=== PATIENT | female | born 1995 | race Caucasian/White ===

== ENCOUNTER 2020-06-10 20:41 | Inpatient (IN) | payer OTHER, MEDICAID, SELFPAY ==
[2020-06-10 20:59] VITALS: BMI 31.8
[2020-06-10 21:00] VITALS: PULSE 90; O2SAT 91
[2020-06-10] MEDS: Lactated Ringers 1,000 ML 200 ML IV (21:07)
[2020-06-10 21:09] VITALS: BP 110/79; PULSE 78; TEMP 36.9
[2020-06-10 21:24] LABS: Absolute Lymphocyte Count 3.05 X10^3/uL (0.83-4.51); Absolute Neutrophil Count 10.3 X10^3/uL (2.0-7.7); Basophil# 0.03 X10^3/uL; Basophil% 0.2 % (0-1); Eosinophil# 0.06 X10^3/uL; Eosinophils% 0.4 % (0-5); Hematocrit 38.6 % (37-47); Hemoglobin 13.3 g/dL (12.0-15.0); Lymphocyte # 3.05 X10^3/ul (4.0); Lymphocyte % 21.2 % (19-41); Mean Corp Hgb Conc 34.5 g/dL (32-36); Mean Corpuscular Hgb 30.2 pg (27.0-32.0); Mean Corpuscular Volume 87.5 fL (81-99); Mean Platelet Vol. 12.3 fl (6.2-12.0); Monocyte# 0.85 X10^3/uL; Monocyte% 5.9 % (0-10); NRBC Flagged by Analyzer 0 % (0-5); Neutrophil # 10.33 X10^3/uL (2.7-7.7); Neutrophil % 71.8 % (47-70); Platelet Count 161 K/mm3 (150-450); RBC Distribution Width CV 12.9 % (11.6-14.6); RBC Distribution Width SD 41.5 fl (35.1-43.9); Red Blood Count 4.41 M/mm3 (4.2-5.4); White Blood Count 14.4 K/mm3 (4.4-11.0)
[2020-06-10 21:39] VITALS: BP 111/75; PULSE 86; TEMP 37.2; O2SAT 97
[2020-06-10 22:15] VITALS: BP 116/70; PULSE 87; TEMP 37.1; O2SAT 96
[2020-06-10 22:16] VITALS: PULSE 87; O2SAT 95
[2020-06-10 23:48] VITALS: BP 104/57; PULSE 76; TEMP 36.6; O2SAT 97
--- NOTE | 2020-06-10 23:53 | PCM.HP.OB ---
- Problem List (1) 38 weeks gestation of Status: Acute (2) Spontaneous onset of labor Status: Acute History Date of Admission: 06/10/20 Final NEELAM: 06/18/20 Gestational age: 38 Weeks and 6 Days History of this : This is a 24 year-old, G [1], P [0], at 38.6 weeks gestational age that presents in spontaneous labor. Patient reports having increasing back pain that did not resolve with bath, heating pad, or Tylenol PO. Denies any loss of fluid or vaginal bleeding. Positive movement. has been uncomplicated. Allergies clindamycin [From Cleocin] Allergy (Verified 06/10/20 21:32) Hives Home Medications: Home Medications Pnv No.95/Ferrous Fum/Folic AC [ Caplet] 1 tab PO DAILY 06/10/20 Smoking Status: Former smoker Number of Fetus(es): 1 NST - FHR Rate Baby A Baseline: 150 Variability:: Moderate Accelerations:: 15 x 15 Decelerations:: None NST Reactive:: Yes FHR Category:: Category I Uterine Activity:: Occasional History Past Pregnancies: Past Pregnancies Delivery Date Name GA/ Weeks Outcome Route Wt Infant Sex Labor Length Anesthesia Delivery Location Provider FOB Labs: O+ Rubella- immune HB -neg HC- neg RPR- NR HIV- NR GC/CH- neg GBS- positive Expected Delivery Method: Spontaneous Vaginal Review of Systems Constitutional: Denies: Chills, Fever, Weight Change HEENT: Denies: Head Aches, Sinus Congestion, Sinus Drainage Cardiovascular: Denies: Chest Pain, Palpitations Respiratory: Denies: Cough, Shortness of breath at rest, Sputum production Gastrointestinal: Denies: Abdominal Pain, Nausea, Vomiting Musculoskeletal: Denies: Joint Pain, Joint Tenderness Neurological: Denies: Numbness, Tingling, Focal weakness Physical Exam Vitals: Vital Signs Temp Pulse BP Pulse Ox 97.8 F 76 104/57 L 97 06/10/20 23:48 06/10/20 23:48 06/10/20 23:48 06/10/20 23:48 General: Alert, Oriented x3, Cooperative HEENT: Atraumatic Cardiovascular: Regular rate Lungs: Normal air movement Abdomen: Soft, Non Tender, Gravid Neurological: Cranial nerves II-XII grossly intact Estimated gestational size: Appropriate for gestational size Cervix Dilation (cm): 6 Station: -1 Effacement (%): 90 Assessment/Plan All Active Problems 38 weeks gestation of (Acute) Spontaneous onset of labor (Acute) This is a 24 year-old, G [1], P [0], at 38.6 weeks gestational age in spontaneous labor. Admit to labor and delivery Routine labs Start IV fluids and run per orders Epidural when indicated GBS positive- Start PCN 5 million units IV x1 then PCN 3 million units IV every 4 hours until delivery AROM after adequate treatment with PCN Anticipate Dr. Mills notified of admission and is collaborating physician
[2020-06-11] VITALS (30 sets, daily range): BP systolic 101–121; BP diastolic 55–77; PULSE 68–113; RESP 16–18; TEMP 36.4–37.4; O2SAT 78–99
--- NOTE | 2020-06-11 01:12 | PCM.PN.BLA ---
Progress Note Continues to feel back pain with contractions. Declines pain medication at this time. Category 1 tracing CE- 790/0 bulging membranes AROM for small amount of clear fluid IUPC and FSE placed without difficulty Anticipate STROKE Vital Signs/Narrative: Vital Signs Temp Pulse BP Pulse Ox 06/11/20 00:23 89 97 06/11/20 00:22 98.2 F 111 H 105/70 78 06/10/20 23:48 97.8 F 76 104/57 L 97 06/10/20 22:16 87 95 06/10/20 22:15 98.8 F 87 116/70 96 06/10/20 21:39 98.9 F 86 111/75 97
[2020-06-11] MEDS: Lactated Ringers 1,000 ML 200 ML IV (01:47)
[2020-06-11] MEDS: Ondansetron 4 MG/2 ML Vial IV (02:36)
[2020-06-11] MEDS: 0.9% Saline Lock 10 ML Syringe IV ×2 (02:36→06:23)
[2020-06-11] MEDS: Oxytocin 30 units/NS 500 ml 30 UNITS/500 ML IV.SOLN 334 UNITS IV (03:47)
--- NOTE | 2020-06-11 04:42 | OP.PCM_ITS ---
Problem List (1) 38 weeks gestation of Status: Acute (2) Spontaneous onset of labor Status: Acute Report of Operation Date of Procedure: 06/11/20 Vaginal Delivery Maternal Presentation: Active Labor Amniotic Membrane Rupture Type: Artificial Rupture of Membrane time: 111 Amniotic Fluid Description: Clear Final NEELAM: 06/18/20 Gestational age: 39 Weeks and 0 Days Date of Procedure: 06/11/20 Pre-Operative Diagnosis: Term gestation, spontaneous labor Post-Operative Diagnosis: Same, live male Surgery/ Procedure Performed: Spontaneous Vaginal Delivery Type of Anesthesia: Local with 1% lidocaine Description of Procedure: Called to patient's room for delivery. Minimal maternal effort delivered infant head with perineal counter pressure applied. Anterior shoulder delivered followed by posterior shoulder and remainder of . Vigorous male placed on maternal abdomen and attended to by nursing staff. 3 vessel cord clamped and cut by FOB after 2 minute delay. placed skin to skin with patient. Pitocin IV started for active management of third stage of labor. Placenta delivered spontaneously and intact. After inspection, Bilateral labial lacerations repaired in usual fashion. A first degree perineal laceration repaired as well. Hemostasis present. Fundus firm 2 below U. EBL 350 cc. APGARS 9/9. Patient bon ding with infant. Dr. Mills notified of delivery Presentation: Vertex, CRISTI Placental Delivery Description: Spontaneous Placenta Disposition: [facility] Cord Vessel Description: 3 Vessels Cord Entanglement: None Estimated Blood Loss: 350 (1 minute): 9 (5 minute): 9 Episiotomy Description: None Laceration: Perineal Extension/lac, 1st degree Medications given after delivery: IV Pitocin Complications: None
[2020-06-11] MEDS: Ibuprofen 600 MG Tablet PO (08:39)
[2020-06-12] VITALS (7 sets, daily range): BP systolic 102–106; BP diastolic 55–66; PULSE 76–96; RESP 16–18; TEMP 36.3–37.1
--- NOTE | 2020-06-12 11:05 | PCM.PN.OB ---
Patient Problems: Active and Suspected Problems 38 weeks gestation of (Acute) Spontaneous onset of labor (Acute) Subjective: Doing well per patient and nursing staff. Ambulating and taking p.o. without difficulty. Breast-feeding without concerns. Denies any headache, visual changes, chest pain, shortness of breath or increased vaginal bleeding. Lochia normal. Controlled pain. Discharge home today. - Physical Exam Vitals/I&O's: Vital Signs Temp Pulse Resp BP Pulse Ox 97.3 F L 76 16 104/66 93 06/12/20 08:10 06/12/20 08:10 06/12/20 08:10 06/12/20 08:10 06/11/20 12:41 Oxygen Delivery Method Room Air Weight: 191 lb Body Mass Index (BMI) 31.8 Intake and Output for Last 24 Hours 06/10/20 06/11/20 06/12/20 23:59 23:59 23:59 Intake Total 105 / 105 2380.00 / 2380.00 Output Total 200 / 200 Balance 105 / 105 2180.00 / 2180.00 General: Alert, Oriented x3, Cooperative HEENT: Atraumatic, Normocephalic Neck: Trachea Midline Lungs: Clear to auscultation, Normal air movement, No rhonchi, No wheeze Cardiovascular: Regular rate, Regular Rhythm, No murmurs Abdomen: Bowel Sounds Present - Fundus firm, 2 below U Extremities: No edema Psych/Mental Status: Normal Affect, Appropriate Microbiology Past 72 Hours 06/10/20 21:25 Mucosa - Nose SARS-CoV-2 Antigen (Rapid) - Final Current Medications Acetaminophen (Acetaminophen 500 Mg Tablet) 1,000 mg PO Q8H PRN PRN PRN Reason: Pain Score 1-3 Bisacodyl (Bisacodyl 10 Mg Suppository) 10 mg RC UD PRN PRN Reason: If no BM Dibucaine (Dibucaine 30 Gm Tube) 1 applic TOPICAL TID PRN PRN; Protocol PRN Reason: Discomfort Hydrocortisone (Hydrocortisone 2.5% Crm) 1 applic TOPICAL TID PRN PRN; Protocol PRN Reason: Discomfort Ibuprofen (Ibuprofen 600 Mg Tablet) 600 mg PO Q6H PRN PRN PRN Reason: Pain Score 1-3 Last Admin: 06/11/20 08:39 Dose: 600 mg Documented by: Methylergonovine Maleate (Methylergonovine 0.2 Mg/Ml Ampul) 0.2 mg IM X1 PRN PRN Reason: Excess bleeding/uterine atony Ondansetron HCl (Ondansetron 4 Mg/2 Ml Vial) 4 mg IV Q4H PRN PRN PRN Reason: Nausea Senna/Docusate Sodium (Senna/Docusate Sodium 1 Tablet) 1 - 2 tablet PO DAILY PRN PRN PRN Reason: Constipation Simethicone (Simethicone 80 Mg Tablet) 80 mg PO PCHS PRN PRN Reason: Indigestion/Stomach pain Sodium Chloride (0.9% Saline Lock 10 Ml Syringe) 5 - 15 ml IV UD PRN PRN Reason: SALINE FLUSH Last Admin: 06/11/20 06:23 Dose: 10 ml Documented by: Throat Lozenges (Benzocaine/Lanolin/Aloe Vera 1 Applic Each) 1 applic TOPICAL 4X/DAY PRN PRN; Protocol PRN Reason: Pain/Inflammation Last Admin: 06/11/20 06:24 Dose: 1 applic Documented by: Medical Necessity - Tobacco Use Smoking Status: Former smoker Assessment/Plan All Active Problems 38 weeks gestation of (Acute) Spontaneous onset of labor (Acute) A: PPD #1 Perineal laceration P: 1. Routine and breast-feeding instructions 2. Pain controlled, declines prescription 3. Follow-up in 2 weeks and 6 weeks for visit 4. Discharge home today
--- NOTE | 2020-06-12 11:08 | DCINST_ITS ---
Discharge Diet: No Restrictions Discharge Activity: Return to Normal Activity, May Drive, May Shower, May Take a Tub Bath May resume sexual activity in: 4-6 weeks Weight Bearing Status: Full weight bearing Additional Activity Instructions:: Nothing in the vagina for 4-6 weeks. You may return to work/school in 6 weeks. Call your doctor if your incision/area has: Continuous Slow Oozing, Sudden Increased Bleeding, Increased Pain/ Swelling, Increased Redness, Foul Smelling Discharge Call your doctor if you observe: Fever of 101 or Higher, Inability to urinate, Inability to have a bowel movement, Using more than one pad per hour, Shortness of breath, Chest pain, Increased palpitations (irregular heartbeat), Calf discomfort, Uncontrolled pain Additional Instructions: If you experience any of the following, contact your healthcare provider. * Bleeding that soaks a pad every hour for 2 hours * Fever 100.4 or higher * Unrelieved incision or abdominal pain * Swelling, redness, discharge or bleeding from your incision or episiotomy site * Your incision begins to separate * Problems urinating (including inability to urinate or burning while urinating). * Visual changes * Severe headache * Flu-like symptoms * Pain or redness in one of both of your breasts * Pain, warmth, tenderness or swelling in your legs, especially the calf area * Frequent nausea and vomiting * Symptoms of depression or anxiety If you experience any of the following, call 911 or go to the nearest Emergency Room. * Chest pain * Problems breathing * Seizure activity * Partial or complete paralysis of a body part, slurred speech, weakness or drooping of the face, or a sudden inability to walk or hold your balance Allergies/Adverse Reactions: Allergies clindamycin [From Cleocin] Allergy (Verified 06/10/20 21:32) Hives Medications to take at Discharge Pnv No.95/Ferrous Fum/Folic AC [ Caplet] 1 tab PO DAILY 06/10/20 Ibuprofen [Motrin] 600 mg PO Q6H PRN PRN tablet 06/12/20 SimETHICONE [Mylicon] 80 mg PO PCHS PRN tablet 06/12/20 Please Follow Up With: Valeria Chavez CNM When: Call to make an appointment with your doctor in 6 weeks. If you had elevated Blood Pressure or 4th degree laceration you will need to be seen in 2 weeks. Primary Care Physician: Nikos Virk MD [Primary Care Provider] - Test Results: Test results from this visit will be discussed in further detail at your follow- up appointment, if applicable.
== END 2020-06-12 14:30 | disposition home or self-care (01) | DRG 807 ==
LOC: WPOUT 20:55 → WP 21:02 → WPOUT 06-11 13:12
PROVIDERS: Admitting Provider Advanced Practice Midwife; PCP Family Medicine; Visit Provider Advanced Practice Midwife
DX: O99.824 Streptococcus B carrier state complicating childbirth (principal); O70.0 First degree perineal laceration during delivery; Z20.822 Contact with and (suspected) exposure to COVID-19; Z87.891 Personal history of nicotine dependence; Z3A.38 38 weeks gestation of pregnancy; Z37.0 Single live birth
CPT/HCPCS: 59025; 59050; 85025; 86850; 86900; 86901; 87426; 99218; J7120; A4216; G0378; J2405